=== PATIENT | male | born 1985 | race Caucasian/White ===

== ENCOUNTER 2023-06-26 19:53 | Emergency (ER) | payer SELFPAY ==
[2023-06-26] MEDS ORDERED: Ketorolac Tromethamine 30 MG/ML VIAL ONE (22:17)
== END 2023-06-26 22:30 | disposition home or self-care (01) ==
LOC: CSHERS 19:53
DX: S05.02XA Injury of conjunctiva and corneal abrasion without foreign body, left eye, initial encounter (principal); H10.9 Unspecified conjunctivitis; F17.210 Nicotine dependence, cigarettes, uncomplicated; I10 Essential (primary) hypertension; W22.8XXA Striking against or struck by other objects, initial encounter
CPT/HCPCS: 96372; 99283; J1885

== ENCOUNTER 2023-11-01 11:18 | Emergency (ER) | payer SELFPAY ==
[2023-11-01] MEDS ORDERED: Dexamethasone 10 MG/ML VIAL ONE (12:58)
== END 2023-11-01 13:05 | disposition home or self-care (01) ==
LOC: CSHERS 11:18
DX: L23.7 Allergic contact dermatitis due to plants, except food (principal)
CPT/HCPCS: 96372; 99282; J1100